=== PATIENT | male | born 1990 | race Caucasian/White ===

== ENCOUNTER 2022-02-22 21:18 | Emergency (ER) | payer SELFPAY ==
[2022-02-22 23:06] LABS: BLOOD UREA NITROGEN,BUN 13 mg/dL (7.0-18.0); CARBON DIOXIDE,CO2 28.5 mmol/L (21.0-32.0); CHLORIDE,CL 105 mmol/L (98-107); GLUCOSE RANDOM 101 mg/dL (74-106); POTASSIUM,K 3.7 mmol/L (3.5-5.1); SODIUM,NA 142 mmol/L (136-148)
[2022-02-22 23:08] LABS: ESTIMATED GFR > 60.0 ml/min
[2022-02-22 23:53] VITALS: BP 137/90; PULSE 90
== END 2022-02-22 23:53 | disposition home or self-care (01) ==
LOC: MW.ED 21:18
DX: N20.9 Urinary calculus, unspecified (principal); R39.12 Poor urinary stream
CPT/HCPCS: 36415; 74176; 74176-26; 80048; 85025; 99284-25